=== PATIENT | male | born 1950 | race Caucasian/White ===

== ENCOUNTER → 2016-07-20 | Outpatient (CLI) | payer MEDICARE, BC ==
[~2016-07-20] MED LIST: CARSR60 PO; CARV3.1260 PO; DRON400T2 PO
--- NOTE | 2016-07-20 09:37 | RADRPT ---
PROCEDURE: XR pelvis/left hip. CLINICAL INDICATION: Hip pain TECHNIQUE: AP pelvis/AP and lateral left hip views performed. COMPARISON: 07/08/2015 FINDINGS: There is a left total hip replacement. There is no evidence of loosening of the prosthesis. There is mild to moderate right hip osteoarthrosis. This is associated with joint space narrowing, s ubchondral sclerosis and osteophytosis. There is normal osseous mineralization. No fractures or os seous lesions are identified. The soft tissues are unremarkable. IMPRESSION: Left total hip replacement. Mild to moderate right hip osteoarthrosis. RPTAT: [facility] .Kee De La Vega MD, MD Date Time Electronically viewed and signed by .Kee De La Vega MD, on 07/20/2016 09:36 .B/
== END | disposition home or self-care (01) ==
LOC: HKI 08:12
PROVIDERS: ATTEND Orthopaedic Surgery
DX: Z47.1 Aftercare following joint replacement surgery (principal); Z96.642 Presence of left artificial hip joint
CPT/HCPCS: 73502; G0463